=== PATIENT | female | born 1980 | race Caucasian/White ===

== ENCOUNTER 2018-07-20 08:13 | Day surgery (SDC) | payer MEDICAID ==
[~2018-07-20 08:13] MED LIST: PROPOFOL INJ 200 MG/20 ML VIAL IV ONE
[2018-07-20 09:29] VITALS: BP 116/66
--- NOTE | 2018-07-20 13:23 | Operative Report ---
Operative Report DATE OF SURGERY: 07/20/18 Operative Report: The risks benefits and alternatives of the procedure explained to the patient in detail and informed consent is obtained .A GIF Olympus video scope was inserted into the patient's mouth and hypopharynx, the esophagus is identified intubated and insufflated ,the scope was then advanced through the esophagus stomach and duodenum ,retroflexion maneuver is done, the esophagus stomach and first and second portions of the duodenum examined. PREOPERATIVE DIAGNOSIS: Left upper quadrant pain rule out peptic ulcer disease POSTOPERATIVE DIAGNOSIS: Erosive gastritis status post biopsy OPERATION: EGD with biopsy SURGEON: CALLUM SCHAEFFER ANESTHESIA: LMAC TISSUE REMOVED OR ALTERED: As noted above. COMPLICATIONS: None. ESTIMATED BLOOD LOSS: None. INTRAOPERATIVE FINDINGS: As noted above. PROCEDURE: Patient tolerated the procedure well. No immediate postprocedure complications are noted. Patient is discharged in good condition. Discharge date 07/20/2018. Discharge diet: Regular. Discharge activity: Regular. 2 to 3-week follow-up to discuss findings. Patient is instructed to call the office or proceed to the emergency room should there be any further questions. Wait on the pathology.
== END 2018-07-20 09:16 | disposition home or self-care (01) ==
LOC: END 08:13 → EDSEX 09:30
PROVIDERS: ATTEND Internal Medicine Gastroenterology
DX: K29.50 Unspecified chronic gastritis without bleeding (principal); K21.9 Gastro-esophageal reflux disease without esophagitis; J45.20 Mild intermittent asthma, uncomplicated; F17.210 Nicotine dependence, cigarettes, uncomplicated; Z79.899 Other long term (current) drug therapy
CPT/HCPCS: 43239; 88342 ×2; 88305 ×2; J2704

== ENCOUNTER 2018-08-13 05:38 | Day surgery (SDC) | payer MEDICAID ==
[2018-08-06 10:49] LABS: ABSOLUTE EOSINOPHILS # (AUTO) 0.3 10^3/uL (0.0-0.6); ABSOLUTE LYMPHOCYTES (AUTO) 1.6 10^3/uL (0.5-4.7); ABSOLUTE MONOCYTES (AUTO) 0.7 10^3/uL (0.1-1.4); ABSOLUTE NEUT (AUTO) 4.3 10^3/uL (1.7-8.2); BASOPHILS % (AUTO) 0.4 % (0-2); EOSINOPHILS % (AUTO) 4.2 % (0-6); HEMATOCRIT 38.3 % (36.0-47.0); HEMOGLOBIN 13.2 g/dL (12.0-15.5); LYMPHOCYTES % (AUTO) 22.7 % (13-45); MEAN CORPUSCULAR HEMOGLOBIN 31.5 pg (27.0-33.4); MEAN CORPUSCULAR HGB CONC 34.6 g/dL (32.0-36.0); MEAN CORPUSCULAR VOLUME 91 fl (80-97); PLATELET COUNT 156 10^3/uL (150-450); RED CELL DISTRIBUTION WIDTH 13.3 % (11.5-14.0); SEGMENTED NEUTROPHILS % (AUTO) 62.7 % (42-78); TOTAL CELLS COUNTED % (AUTO) 100 %; WHITE BLOOD COUNT 6.8 10^3/uL (4.0-10.5)
[2018-08-06 11:31] LABS: ANION GAP 10 (5-19); BLOOD UREA NITROGEN 8 mg/dL (7-20); CALCIUM 9.9 mg/dL (8.4-10.2); CARBON DIOXIDE 26 mmol/L (22-30); CHLORIDE 106 mmol/L (98-107); GLUCOSE 87 mg/dL (75-110); POTASSIUM 4.5 mmol/L (3.6-5.0); SODIUM 142.4 mmol/L (137-145)
[~2018-08-13 05:38] MED LIST changes: +CEFAZOLIN 1 GM/D5W RTU 1 GM/50 ML RTUPB IV PRN; +LACTATED RINGERS 1000 ML IV PRN; +LIDOCAINE 0.5% INJ-PF (5 MG/ML) 50 ML SDV SUBCUT PRN; +METRONIDAZOLE 500 MG/NS RTU 500 MG/100 ML RTUPB IV PRN; -PROPOFOL INJ 200 MG/20 ML VIAL IV ONE
[2018-08-13] MEDS ORDERED: METRONIDAZOLE 500 MG/NS RTU 500 MG/100 ML RTUPB IV ONE (05:44)
[2018-08-13] MEDS ORDERED: CEFAZOLIN 1 GM/D5W RTU 1 GM/50 ML RTUPB IV ONE (05:44)
[2018-08-13] MEDS ORDERED: LIDOCAINE 2% INJ (20 MG/ML) 20 ML MDV ONE (06:58)
[2018-08-13] MEDS ORDERED: MIDAZOLAM 2 MG/2 ML INJ ONE (07:00)
[2018-08-13] MEDS ORDERED: PROPOFOL INJ 200 MG/20 ML VIAL IV ONE (07:00)
[2018-08-13] MEDS ORDERED: FENTANYL CITRATE INJ/PF 100 MCG/2 ML AMPUL ONE ×2 (07:00→08:26)
[2018-08-13] MEDS ORDERED: BUPIVACAINE HCL 0.5%-EPI 1:200000 INJ/PF 30 ML VIAL ONE (07:05)
[2018-08-13] MEDS ORDERED: MEPERIDINE HCL/PF INJ 25 MG/1 ML DISP.SYRIN IV PRN (07:38)
[2018-08-13] MEDS ORDERED: MORPHINE SULFATE 10 MG/ML INJ IV PRN (07:38)
[2018-08-13] MEDS ORDERED: ONDANSETRON HCL INJ/PF 4 MG/2 ML SDV IV PRN (07:38)
[2018-08-13] MEDS ORDERED: PROMETHAZINE HCL INJ 25 MG/1 ML VIAL IV PRN (07:38)
[2018-08-13] MEDS ORDERED: OXYCODONE-ACETAMINOPHEN 5-325 MG TABLET PO PRN ×3 (07:38→08:18)
[2018-08-13] MEDS ORDERED: FENTANYL CITRATE INJ/PF 100 MCG/2 ML AMPUL IV PRN ×3 (07:38)
[2018-08-13] MEDS ORDERED: DIPHENHYDRAMINE HCL 50 MG/ML VIAL IV PRN (07:38)
--- NOTE | 2018-08-13 08:17 | Operative Report ---
Nonrecallable Operative Report DATE OF SURGERY: 08/13/18 PREOPERATIVE DIAGNOSIS: cholelithiasis POSTOPERATIVE DIAGNOSIS: cholelithiasis OPERATION: laparoscopic cholecystectomy SURGEON: KATHY PALMER ANESTHESIA: GA TISSUE REMOVED OR ALTERED: gallbladder COMPLICATIONS: none ESTIMATED BLOOD LOSS: 25cc INTRAOPERATIVE FINDINGS: see dictation PROCEDURE: see dictation
--- NOTE | 2018-08-13 08:18 | Discharge Summary ---
Discharge Summary (SDC) - Discharge Final Diagnosis: cholelilthiasis Date of Surgery: 08/13/18 Discharge Date: 08/13/18 Condition: Good Treatment or Instructions: ok to shower tomorrow no wt greater than 10lbs resume nl diet Referrals: JOYCE NG PA-C [Primary Care Provider] - Discharge Diet: As Tolerated Discharge Activity: Activity As Tolerated Report the Following to Your Physician Immediately: Shortness of Breath, Nausea, Vomiting, Increase in Pain, Fever over 101 Degrees, Redness
[2018-08-13] MEDS: FENTANYL CITRATE INJ/PF 100 MCG/2 ML AMPUL ONE ×4 (08:25→08:55)
[2018-08-13] MEDS ORDERED: LORAZEPAM INJ 2 MG/1 ML VIAL ONE (08:34)
--- NOTE | 2018-08-13 08:41 | OPERATIVE REPORT E ---
Operative Report NAME: AXEL ESPARZA : 1980 AGE: 38Y DATE OF SURGERY: 08/13/2018 ROOM: PREOPERATIVE DIAGNOSIS: Cholelithiasis, symptomatic. POSTOPERATIVE DIAGNOSIS: Cholelithiasis, symptomatic. OPERATIVE PROCEDURE: Laparoscopic cholecystectomy. SURGEON: KATHY PALMER M.D. ANESTHESIA: General. PROCEDURE: The patient was brought to the operating room in an awake, alert, and stable condition, placed on the operating table in supine position, induced under general anesthesia and intubated. The abdomen was prepped and draped in the usual sterile manner for the procedure. A Veress needle was placed into the umbilicus and the abdomen was insufflated with 6 L of CO2 gas. An infraumbilical 10 mm incision was made with a 15 blade and a 10 mm port placed in the abdominal cavity. Intra-abdominal visualization revealed no evidence of Veress needle or trocar injury. Epigastric 5 mm port was placed under direct vision and two lateral 5 mm ports under direct vision. The gallbladder was identified; it was placed on traction. The hepatoduodenal ligament was identified; it was dissected. The cystic duct and cystic artery were both isolated from the hepatoduodenal ligament. The critical view angle was identified. Two Endoclips were placed on the stay side of both those structures and they were divided. The gallbladder was dissected out of the liver bed with Bovie cautery, placed in an Endobag and removed through the umbilical port site. The right upper quadrant was irrigated with normal saline and suctioned dry. Hemostasis was noted to be intact. The ports were removed. The umbilical defect was closed with 0 Vicryl in the fascia, and then all four skin incisions were closed with intracuticular 4-0 Biosyn, and skin glue was utilized for the skin layer. This completed the procedure. Estimated blood loss was less than 25 mL. Sponge and needle counts were correct x2. The patient was awakened in the operating room, extubated, and transferred to recovery in stable condition, no complications. DICTATING PHYSICIAN: KATHY PALMER M.D. [id number] PHY#: [id number] ID: [id number] JOB#: [id number] ACCT: [id number] cc:KATHY PALMER M.D. >
[2018-08-13] MEDS ORDERED: MORPHINE SULFATE 10 MG/ML INJ ONE (08:50)
[2018-08-13] MEDS ORDERED: LORAZEPAM INJ 2 MG/1 ML VIAL IV ONE (09:00)
[2018-08-13] MEDS ORDERED: ALPRAZOLAM 0.5 MG TABLET ONE (09:11)
[2018-08-13] MEDS ORDERED: KETOROLAC TROMETHAMINE 60 MG/2 ML SDV ONE (09:53)
[2018-08-13] MEDS ORDERED: DEXAMETHASONE SOD PHOSPHATE INJ 4 MG/1 ML VIAL ONE (09:53)
[2018-08-13] MEDS ORDERED: ROCURONIUM BROMIDE INJ 50 MG/5 ML VIAL IV ONE (09:53)
[2018-08-13] MEDS ORDERED: ONDANSETRON HCL INJ/PF 4 MG/2 ML SDV ONE (09:53)
[2018-08-13] MEDS ORDERED: SUCCINYLCHOLINE CHLORIDE INJ 200 MG/10 ML VIAL ONE (09:53)
[2018-08-13 12:26] VITALS: BP 99/68
== END 2018-08-13 10:40 | disposition home or self-care (01) ==
LOC: OROUT 05:38
PROVIDERS: ATTEND Surgery
DX: K80.20 Calculus of gallbladder without cholecystitis without obstruction (principal); J45.909 Unspecified asthma, uncomplicated; F31.9 Bipolar disorder, unspecified; K21.9 Gastro-esophageal reflux disease without esophagitis; F41.9 Anxiety disorder, unspecified; F17.210 Nicotine dependence, cigarettes, uncomplicated; Z79.899 Other long term (current) drug therapy; Z79.51 Long term (current) use of inhaled steroids
CPT/HCPCS: 36415; 85025; 81025; 80048; 88304 ×2; 00790; 47562; J3490 ×5; J2250; J0690; J1100; J1885; J3010; J2270; J2060; J0330; J2405; J2704; 790

== ENCOUNTER 2018-08-24 05:41 | Day surgery (SDC) | payer MEDICAID ==
[2018-08-21 11:59] LABS: HEMATOCRIT 40.3 % (36.0-47.0); MEAN CORPUSCULAR HEMOGLOBIN 31.7 pg (27.0-33.4); MEAN CORPUSCULAR HGB CONC 34.7 g/dL (32.0-36.0); MEAN CORPUSCULAR VOLUME 91 fl (80-97); PLATELET COUNT 200 10^3/uL (150-450); RED BLOOD COUNT 4.42 10^6/uL (3.72-5.28); RED CELL DISTRIBUTION WIDTH 12.5 % (11.5-14.0); WHITE BLOOD COUNT 7.9 10^3/uL (4.0-10.5)
[2018-08-21 12:03] LABS: APPEARANCE,URINE SLIGHTLY-CLOUDY; BILIRUBIN,URINE NEGATIVE (NEGATIVE); COLOR,URINE YELLOW; GLUCOSE, URINE NEGATIVE (NEGATIVE); KETONES,URINE NEGATIVE (NEGATIVE); LEUKOCYTE ESTERASE,URINE NEGATIVE (NEGATIVE); NITRITE,URINE NEGATIVE (NEGATIVE); PROTEIN,URINE NEGATIVE (NEGATIVE); URINE SPECIFIC GRAVITY 1.013; UROBILINOGEN,URINE NEGATIVE mg/dL (<2.0)
[~2018-08-24 05:41] MED LIST changes: -CEFAZOLIN 1 GM/D5W RTU 1 GM/50 ML RTUPB IV PRN; -METRONIDAZOLE 500 MG/NS RTU 500 MG/100 ML RTUPB IV PRN
[2018-08-24] MEDS ORDERED: HYDROMORPHONE HCL INJ/PF 2 MG/ML AMPULE ONE (07:02)
[2018-08-24] MEDS ORDERED: FENTANYL CITRATE INJ/PF 250 MCG/5 ML AMPULE ONE (07:02)
[2018-08-24] MEDS ORDERED: KETAMINE HCL INJ 500 MG/10 ML VIAL ONE (07:02)
[2018-08-24] MEDS ORDERED: LIDOCAINE 2% INJ-PF (100 MG/5 ML) SYRINGE ONE (07:02)
[2018-08-24] MEDS ORDERED: MIDAZOLAM 2 MG/2 ML INJ ONE (07:02)
[2018-08-24] MEDS ORDERED: PROPOFOL INJ 200 MG/20 ML VIAL IV ONE (07:03)
[2018-08-24] MEDS ORDERED: EPHEDRINE SULFATE INJ 50 MG/1 ML AMPULE ONE (07:03)
[2018-08-24] MEDS ORDERED: SCOPOLAMINE HYDROBROMIDE 1.5 MG PATCH.TD72 ONE (07:24)
[2018-08-24] MEDS ORDERED: CEFAZOLIN 2 GM/D5W RTU 2 GM/50 ML RTUPB IV ONE (07:29)
[2018-08-24] MEDS ORDERED: MORPHINE SULFATE 10 MG/ML INJ IV PRN (09:54)
[2018-08-24] MEDS ORDERED: FENTANYL CITRATE INJ/PF 100 MCG/2 ML AMPUL IV PRN ×3 (09:54)
[2018-08-24] MEDS ORDERED: PROMETHAZINE HCL INJ 25 MG/1 ML VIAL IV PRN ×3 (09:54→10:11)
[2018-08-24] MEDS ORDERED: DIPHENHYDRAMINE HCL 50 MG/ML VIAL IV PRN (09:54)
[2018-08-24] MEDS ORDERED: OXYCODONE-ACETAMINOPHEN 5-325 MG TABLET PO PRN ×2 (09:54)
[2018-08-24] MEDS ORDERED: MEPERIDINE HCL/PF INJ 25 MG/1 ML DISP.SYRIN IV PRN (09:54)
[2018-08-24] MEDS ORDERED: ALBUTEROL SULFATE HFA (90 MCG/PUFF) 200 PUFF/8.5 GM MDI IH PRN (10:09)
[2018-08-24] MEDS ORDERED: TEMAZEPAM 15 MG CAPSULE PO PRN (10:09)
[2018-08-24] MEDS ORDERED: SIMETHICONE 80 MG TAB.CHEW PO PRN (10:11)
[2018-08-24] MEDS ORDERED: ACETAMINOPHEN 1,000 MG/100 ML RTUPB IV PRN (10:11)
[2018-08-24] MEDS ORDERED: OXYTOCIN/NORMAL SALINE 20 UNIT/1,000 ML RTUINJ IV PRN (10:11)
[2018-08-24] MEDS ORDERED: LORAZEPAM INJ 2 MG/1 ML VIAL IV PRN (10:24)
--- NOTE | 2018-08-24 10:25 | Operative Report ---
Operative Report DATE OF SURGERY: 08/24/18 PREOPERATIVE DIAGNOSIS: MARICEL-3 of the cervix, chronic pelvic pain, history of ov bhumika cysts, dyspareunia POSTOPERATIVE DIAGNOSIS: Same OPERATION: Da Manuel hysterectomy, bilateral salpingo-oophorectomy SURGEON: RAHUL HOLBROOK ANESTHESIA: GA TISSUE REMOVED OR ALTERED: Uterus cervix tubes ovaries COMPLICATIONS: None ESTIMATED BLOOD LOSS: 50 cc INTRAOPERATIVE FINDINGS: Patient had a normal size uterus and ovaries with follicular cysts present. There were adhesions about the ovaries to the broad ligament as well. PROCEDURE: Patient was taken the OR placed in supine position. General anesthesia was induced. She is placed in dorsolithotomy position using Roberto stirrups. Her abdomen perineum and vagina were prepared and draped in sterile fashion. Her bladder was drained with a Mariano catheter. A weighted speculum was placed in the vagina and the anterior lip of the cervix was grasped and a suture placed. The uterus was sounded 8 cm. The Platypus TV uterine manipulator was placed and balloon inflated. An incision was made above the umbilicus and carried down the level of the fascia. The fascia was grasped with [place] clamps and elevated and incised with scissors. This entered the abdominal cavity without incident and a blunt port was placed. Laparoscopy confirmed appropriate placement. View of the pelvis was good. The uterus was mobile. Right and left lateral ports were placed under laparoscopic visualization. A right lower quadrant port was placed for the insufflation device. The patient was placed in maximum Trendelenburg and the robot was brought to the patient and docked. Cautery was placed at the right arm and bipolar cautery placed at the left arm. View of the pelvis was good. The round ligaments were cauterized with bipolar and cut with monopolar haily. The ureters were identified well down in the pelvis away from the infundibulopelvic pedicles. First the right ovary was elevated about the pelvis and the infundibulopelvic pedicle was cauterized with bipolar and cut with monopolar haily. The broad ligament also was cauterized with bipolar and cut with monopolar haily moving directly to the uterine body. The same procedure was carried out with the left ovary and tube. The round ligaments were cauterized with bipolar and cut with monopolar haily. The anterior leaf of the broad ligament was incised crating a bladder flap. Staying directly next to the uterus the broad ligament along the body of the uterus was cauterized with bipolar and cut with monopolar haily. The uterine arteries also were cauterized with bipolar and cut with monopolar haily bilaterally. The cardinal ligaments also were cauterized bipolar and cut with monopolar haily. At the same time the bladder flap was developed with sharp and blunt dissection. Upon reaching the ring of the V care manipulator a circumferential incision was made on the vaginal cuff with the monopolar haily. The uterus was removed through the vagina. Next the monopolar haily were replaced with a needle grasper and a V lock suture was placed through the accessory port. The vaginal cuff was then closed. I started at the right vaginal cuff incorporating anterior vaginal mucosa lateral vaginal sidewall and posterior vaginal mucosa the knot was looped and pulled tight. The cuff was closed then from right to left incorporating anterior vaginal mucosa to posterior vaginal mucosa and upon reaching the left side of the cuff anterior vaginal mucosa lateral vaginal sidewall posterior vaginal mucosa. The suture was pulled tight and then several more sutures were taken medially. The stitch was then cut and the needle passed off the field. The pelvis was irrigated and suctioned free of fluid. All pedicles were inspected for bleeding. The ureters were identified and both were peristalsing and were normal size at the pelvic brim. Next the robot was undocked. Using the laparoscope each port was removed under laparoscopic visualization. The umbilical port and scope were removed at the same time. The gas had been allowed to escape prior to removing the umbilical port. The fascia at the umbilicus and at the right lower quadrant were closed with a 2-0 Vicryl stitch. The skin at all 4 ports was closed with a 4-0 undyed Vicryl stitch. The patient was placed back in supine position and brought out of anesthesia at this time. She was taken to recovery room in stable condition.
[2018-08-24] MEDS ORDERED: LORAZEPAM INJ 2 MG/1 ML VIAL ONE (10:26)
[2018-08-24] MEDS ORDERED: HYDROMORPHONE HCL INJ/PF 2 MG/ML AMPULE IV PRN (10:27)
[2018-08-24] MEDS ORDERED: KETOROLAC TROMETHAMINE 60 MG/2 ML SDV ONE (13:12)
[2018-08-24] MEDS ORDERED: ONDANSETRON HCL INJ/PF 4 MG/2 ML SDV ONE (13:12)
[2018-08-24] MEDS ORDERED: GLYCOPYRROLATE 1 MG/5 ML VIAL ONE (13:12)
[2018-08-24] MEDS ORDERED: METOCLOPRAMIDE HCL INJ/PF 10 MG/2 ML SDV ONE (13:12)
[2018-08-24] MEDS ORDERED: ROCURONIUM BROMIDE INJ 50 MG/5 ML VIAL IV ONE (13:12)
[2018-08-24] MEDS ORDERED: NEOSTIGMINE METHYLSULFATE 10 MG/10 ML VIAL ONE (13:12)
[2018-08-24] MEDS ORDERED: DEXAMETHASONE SOD PHOSPHATE INJ 4 MG/1 ML VIAL ONE (13:12)
[2018-08-24] MEDS ORDERED: GABAPENTIN 400 MG CAPSULE PO SCH (14:00)
[2018-08-24] MEDS ORDERED: KETOROLAC TROMETHAMINE INJ/PF 30 MG/1 ML SDV IV SCH (14:00)
[2018-08-24] MEDS ORDERED: (PENDING PHARMACY ID) (Gabapentin [Gabapentin] 800 MG) PO SCH (14:00)
[2018-08-24] MEDS: HYDROMORPHONE HCL INJ/PF 2 MG/ML AMPULE IV PRN ×2 (14:05→17:59)
[2018-08-24 15:28] LABS: ABSOLUTE BASOPHILS # (AUTO) 0.1 10^3/uL (0.0-0.2); ABSOLUTE LYMPHOCYTES (AUTO) 1.1 10^3/uL (0.5-4.7); ABSOLUTE MONOCYTES (AUTO) 1.1 10^3/uL (0.1-1.4); ABSOLUTE NEUT (AUTO) 14.7 10^3/uL (1.7-8.2); BASOPHILS % (AUTO) 0.7 % (0-2); HEMOGLOBIN 13.2 g/dL (12.0-15.5); LYMPHOCYTES % (AUTO) 6.6 % (13-45); MEAN CORPUSCULAR HEMOGLOBIN 31.4 pg (27.0-33.4); MEAN CORPUSCULAR HGB CONC 34.8 g/dL (32.0-36.0); MEAN CORPUSCULAR VOLUME 90 fl (80-97); MONOCYTES % (AUTO) 6.2 % (3-13); PLATELET COUNT 184 10^3/uL (150-450); RED CELL DISTRIBUTION WIDTH 12.8 % (11.5-14.0); SEGMENTED NEUTROPHILS % (AUTO) 86.5 % (42-78); TOTAL CELLS COUNTED % (AUTO) 100 %
[2018-08-24 15:48] LABS: ALANINE AMINOTRANSFERASE 18 U/L (9-52); ALBUMIN 3.7 g/dL (3.5-5.0); ALKALINE PHOSPHATASE 45 U/L (38-126); ANION GAP 8 (5-19); BILIRUBIN,DIRECT 0.2 mg/dL (0.0-0.4); BILIRUBIN,TOTAL 0.3 mg/dL (0.2-1.3); BLOOD UREA NITROGEN 8 mg/dL (7-20); CARBON DIOXIDE 24 mmol/L (22-30); CHLORIDE 108 mmol/L (98-107); GLUCOSE 112 mg/dL (75-110); POTASSIUM 4.4 mmol/L (3.6-5.0); SODIUM 140.4 mmol/L (137-145); TOTAL PROTEIN 5.7 g/dL (6.3-8.2)
[2018-08-24 15:49] LABS: ASPARTATE AMINO TRANSFERASE 13 U/L (14-36)
[2018-08-24] MEDS: DOCUSATE SODIUM 100 MG CAPSULE PO SCH (17:52)
[2018-08-24] MEDS: OXYCODONE-ACETAMINOPHEN 5-325 MG TABLET PO PRN (19:20)
[2018-08-24] MEDS: NICOTINE 14 MG/24 HR PATCH.TD24 TD SCH (21:25)
[2018-08-24] MEDS: RINGERS SOLUTION,LACTATED 1,000 ML IV PRN (21:29)
[2018-08-24] MEDS ORDERED: TRAZODONE HCL 50 MG TABLET PO SCH (22:00)
[2018-08-24] MEDS ORDERED: ALPRAZOLAM 0.5 MG TABLET PO SCH (22:00)
[2018-08-24] MEDS ORDERED: IBUPROFEN 800 MG TABLET ONE (23:08)
[2018-08-25] MEDS: OXYCODONE-ACETAMINOPHEN 5-325 MG TABLET PO PRN ×4 (00:26→12:46)
[2018-08-25] MEDS: GABAPENTIN 400 MG CAPSULE PO SCH ×2 (02:45→12:38)
[2018-08-25] MEDS: KETOROLAC TROMETHAMINE INJ/PF 30 MG/1 ML SDV IV SCH ×2 (02:47→09:53)
[2018-08-25] MEDS: RINGERS SOLUTION,LACTATED 1,000 ML IV PRN (06:18)
[2018-08-25 07:47] LABS: HEMATOCRIT 33.5 % (36.0-47.0); HEMOGLOBIN 11.6 g/dL (12.0-15.5); MEAN CORPUSCULAR HEMOGLOBIN 31.4 pg (27.0-33.4); MEAN CORPUSCULAR HGB CONC 34.6 g/dL (32.0-36.0); MEAN CORPUSCULAR VOLUME 91 fl (80-97); PLATELET COUNT 150 10^3/uL (150-450); RED BLOOD COUNT 3.69 10^6/uL (3.72-5.28); RED CELL DISTRIBUTION WIDTH 12.6 % (11.5-14.0); WHITE BLOOD COUNT 10.1 10^3/uL (4.0-10.5)
--- NOTE | 2018-08-25 08:57 | PDOC DISCHARGE SUMMARY ---
General - Admit/Disc Date/PCP Admission Date/Primary Care Provider: JOYCE NG PA-C Discharge Date: 08/25/18 - Discharge Diagnosis (1) Cervical dysplasia Is this a current diagnosis for this admission?: Yes (2) Chronic female pelvic pain Is this a current diagnosis for this admission?: Yes - Additional Information Home Medications: Alprazolam [Xanax 0.5 mg Tablet] 0.5 mg PO ASDIR PRN 07/17/18 Alprazolam [Xanax] 2 mg PO QHS 07/17/18 Gabapentin 800 mg PO TID 07/17/18 Temazepam [Restoril 15 mg Capsule] 30 mg PO HSP PRN 07/17/18 Trazodone HCl [Desyrel] 300 mg PO DAILY 07/17/18 Albuterol Sulfate [Proair Hfa Inhalation Aerosol 8.5 gm Mdi] 1 puff IH Q4 PRN 08/24/18 History of Present Illness Patient complains of: Starla 3, chronic pain with ovarian cysts and menses. History of Present Illness: AXEL ESPARZA is a 38 year old female She presents with starla 3, and chronic pelvic pain. She desires a hysterectomy and bso to treat these problem. Hospital Course Hospital Course: She underwent a Davinci hysterectomy with bso yesterday. Please see the operative note. She had some pain issues through the night. This am she is doing well and she would like to go home later today. We will remove her cath eter and Iv and advance her diet. She has some drop in her Hct this am but likely much of this is dilutional with her IV fluids last night. She appears stable in good condition this morning. Physical Exam - Physical Exam Vital Signs: Temp Pulse Resp BP Pulse Ox 98.2 F 62 18 108/60 97 08/25/18 04:00 08/25/18 04:00 08/25/18 04:00 08/25/18 04:00 08/25/18 04:00 Intake & Output 08/24/18 08/25/18 08/26/18 06:59 06:59 06:59 Intake Total 0 5170 Output Total 7215 Balance 0 -2045 Weight 72.12 kg 72 kg General appearance: PRESENT: no acute distress Head exam: PRESENT: atraumatic Cardiovascular exam: PRESENT: RRR. ABSENT: diastolic murmur, rubs, systolic murmur Vascular exam: PRESENT: normal capillary refill GI/Abdominal exam: PRESENT: other - abdomen is soft with expected tenderness Extremities exam: PRESENT: full ROM. ABSENT: calf tenderness, clubbing, pedal edema Result Laboratory Results: 08/25/18 07:20 08/24/18 15:15 08/24/18 08/24/18 08/25/18 15:15 15:15 07:20 WBC 17.0 H 10.1 RBC 4.20 3.69 L Hgb 13.2 11.6 L Hct 38.0 33.5 L MCV 90 91 MCH 31.4 31.4 MCHC 34.8 34.6 RDW 12.8 12.6 Plt Count 184 150 Seg Neutrophils % 86.5 H Lymphocytes % 6.6 L Monocytes % 6.2 Eosinophils % 0.0 Basophils % 0.7 Absolute Neutrophils 14.7 H Absolute Lymphocytes 1.1 Absolute Monocytes 1.1 Absolute Eosinophils 0.0 Absolute Basophils 0.1 Sodium 140.4 Potassium 4.4 Chloride 108 H Carbon Dioxide 24 Anion Gap 8 BUN 8 Creatinine 0.50 L Est GFR ( Amer) > 60 Est GFR (Non-Af Amer) > 60 Glucose 112 H Calcium 9.0 Total Bilirubin 0.3 AST 13 L ALT 18 Alkaline Phosphatase 45 Total Protein 5.7 L Albumin 3.7 Impressions: She appears to be doing well this morning. Plan Discharge Plan: Home to rest with followup in a week. Time Spent: Less than 30 Minutes Acute Heart Failure - Is this a Heart Failure Patient?: No
[2018-08-25] MEDS: DOCUSATE SODIUM 100 MG CAPSULE PO SCH (09:54)
[2018-08-25] MEDS ORDERED: (PENDING PHARMACY ID) (Trazodone Hcl [Desyrel] 300 MG) PO SCH (10:00)
[2018-08-25 10:10] VITALS: BP 101/48
[2018-08-25] MEDS: NICOTINE 14 MG/24 HR PATCH.TD24 TD SCH (12:38)
[2018-08-25] MEDS ORDERED: IBUPROFEN 800 MG TABLET PO SCH (18:00)
== END 2018-08-25 14:14 | disposition home or self-care (01) ==
LOC: OROUT 05:41 → 2N 11:10 → OROUT 08-25 14:14
PROVIDERS: ATTEND Obstetrics & Gynecology
DX: N83.12 Corpus luteum cyst of left ovary (principal); N83.11 Corpus luteum cyst of right ovary; N83.02 Follicular cyst of left ovary; N83.01 Follicular cyst of right ovary; D06.9 Carcinoma in situ of cervix, unspecified; G89.29 Other chronic pain; R10.2 Pelvic and perineal pain; J45.909 Unspecified asthma, uncomplicated; Z91.040 Latex allergy status; Z79.899 Other long term (current) drug therapy
CPT/HCPCS: 58571; S2900; 36415; 80053; 81001; 81025; 840; 85025; 85027; 88307; 94799; J0690; J1100; J1170; J1885; J2001; J2060; J2250; J2405; J2704; J2710; J2765; J3010; J3490; J7120

== ENCOUNTER 2018-10-02 09:14 | Day surgery (SDC) | payer MEDICAID ==
[~2018-10-02 09:14] MED LIST changes: -LACTATED RINGERS 1000 ML IV PRN; -LIDOCAINE 0.5% INJ-PF (5 MG/ML) 50 ML SDV SUBCUT PRN; +PROPOFOL INJ 200 MG/20 ML VIAL IV ONE
[2018-10-02] MEDS ORDERED: PROPOFOL INJ 200 MG/20 ML VIAL IV ONE (10:03)
[2018-10-02 10:42] VITALS: BP 113/56
--- NOTE | 2018-10-02 11:28 | Operative Report ---
Operative Report DATE OF SURGERY: 10/02/18 Operative Report: The risks, benefits and alternatives of the procedure including the risk of bleeding, perforation requiring surgery have been explained to the patient in detail and informed consent has been obtained. Patient is taken back to the endoscopy suite and placed in a left, lateral decubital position. Timeout was called. Propofol medication is administered. Rectal examination is done which did not reveal any masses, tears or fissures. An Olympus videoscope was introduced into the patient's rectum. The scope was then carefully advanced all the way to the cecum. The cecum was identified by the usual anatomical landmarks including the ileocecal valve as well as the appendiceal office. Photodocumentation is obtained. The scope was then sequentially pulled back via the various segments of the colon including the ascending colon, hepatic flexure, transverse colon, splenic flexure, descending colon and finally into the rectosigmoid portions of the colon. Retroflexion maneuvers performed. PREOPERATIVE DIAGNOSIS: Abdominal pain, change in bowel habits POSTOPERATIVE DIAGNOSIS: Somewhat tortuous sigmoid colon. Mild terminal ileitis status post biopsy OPERATION: Colonoscopy with biopsy SURGEON: CALLUM SCHAEFFER ANESTHESIA: LMAC TISSUE REMOVED OR ALTERED: As noted above. COMPLICATIONS: None. ESTIMATED BLOOD LOSS: None. INTRAOPERATIVE FINDINGS: As noted above. PROCEDURE: Patient tolerated the procedure well. No immediate postprocedure complications are noted. Patient is discharged in good condition. Discharge date 10/02/2018. Discharge diet: Regular. Discharge activity: Regular. 2 to 3-week follow-up to discuss findings. Patient is instructed to call the office or proceed to the emergency room should there be any further problems or questions. Wait on the pathology.
== END 2018-10-02 10:41 | disposition home or self-care (01) ==
LOC: END 09:14
PROVIDERS: ATTEND Internal Medicine Gastroenterology
DX: K52.9 Noninfective gastroenteritis and colitis, unspecified (principal); Q43.8 Other specified congenital malformations of intestine; F17.210 Nicotine dependence, cigarettes, uncomplicated; K21.9 Gastro-esophageal reflux disease without esophagitis; J45.20 Mild intermittent asthma, uncomplicated; Z79.899 Other long term (current) drug therapy; Z79.51 Long term (current) use of inhaled steroids
CPT/HCPCS: 45380; 88305 ×2; 00811; J2704; 811